=== PATIENT | male | born 1960 | race Caucasian/White ===

== ENCOUNTER → 2016-05-17 | Day surgery (SDC) | payer OTHER ==
[~2016-05-17] MED LIST: ASPIRIN EC81 M1 PO; FISH OIL 1,0001 CAP; MULTI VITAMIN1 EACH PO; TRICOR; ZYLOPRIM100 MG
--- NOTE | ~2016-05-17 | OR ---
Unit #: [id number] #: [id number] Patient: JEFF MATAMOROS [id number] [address] [address] [id number] O MR#: [id number] NAME: JEFF MATAMOROS. ROOM: Date of Procedure: 05/17/2016 Admission Date: 05/17/2016 Surgeon: Jose Vargas M.D. : 1960 Attending Physician: Jose Vargas M.D. Primary Care Physician: Elpidio Medellin M.D. OPERATIVE REPORT PREOPERATIVE DIAGNOSIS Colorectal cancer screening in an average-risk patient. PROCEDURES PERFORMED Colonoscopy and biopsy. POSTOPERATIVE DIAGNOSES Single sessile polyp in the distal ascending colon. This was diminutive and was removed using cold biopsy forceps. Rest of the examination up to cecum and terminal ileum was normal. The quality of the prep was excellent. RECOMMENDATIONS Follow up the results of polyp histology and consider repeat colonoscopy in 5 years. SEDATION USED MAC. DESCRIPTION OF PROCEDURE Following detailed explanation of potential risks and complications of a colonoscopy, namely perforation, bleeding, and complication related to sedation, the patient was brought to GI lab and laid in the left lateral decubitus position. A digital rectal examination was performed which was normal. Lubricated tip of the Olympus video colonoscope was inserted through the anus and advanced under direct vision. The scope was advanced past rectosigmoid into descending colon. No diverticula were noted in this area. The scope tip was then navigated all the way up to cecum with visualization of the ileocecal valve and the appendiceal orifice. Preparation was excellent with good visualization and photodocumentation was obtained. Last several inches of terminal ileum were also visualized after intubation of the ileocecal valve and appeared normal. Successive segments of the colonic mucosa were examined upon withdrawal and appeared unremarkable except for a single sessile polyp in the distal ascending colon. The latter was removed using cold biopsy forceps. It was retrieved and sent for histology. No additional polyps were noted. The patient did not have any diverticulosis nor any hemorrhoids. The scope was then withdrawn and the patient returned to the recovery area. He tolerated the procedure without any postprocedure complications. Dictated by... Unit #: [id number] #: [id number] Patient: JEFF MATAMOROS Son Muñoz TD: 05/18/2016 02:23 JOB #: [id number] OPERATIVE REPORT Page 1 of 1 X Jose Vargas MD X PROCEDURE OPERATIVE NOTE
== END | disposition home or self-care (01) ==
LOC: COPS 07:41
DX: Z12.11 Encounter for screening for malignant neoplasm of colon (principal); D12.2 Benign neoplasm of ascending colon; E78.5 Hyperlipidemia, unspecified; Z87.442 Personal history of urinary calculi; Z79.82 Long term (current) use of aspirin; Z79.899 Other long term (current) drug therapy
CPT/HCPCS: 88305; J2250